=== PATIENT | female | born 1965 | race Caucasian/White ===

== ENCOUNTER 2017-01-08 09:15 | Emergency (ER) | payer BC ==
[2017-01-08] MEDS ORDERED: SYNTHROID0.125 MG PO (09:33)
[2017-01-08] MEDS ORDERED: ESTRACE 1MG1 MG/TAB PO (09:33)
[2017-01-08] MEDS ORDERED: DIAZEPAM10 MG PO (09:33)
[2017-01-08] MEDS ORDERED: OMEPRAZOLE D/R20 MG PO (10:38)
[2017-01-08 10:49] VITALS: BP 110/67
== END 2017-01-08 10:49 | disposition home or self-care (01) ==
LOC: ED 09:15
DX: K29.00 Acute gastritis without bleeding (principal)

== ENCOUNTER → 2017-01-08 | Outpatient (CLI) | payer BC ==
[~2017-01-08] VITALS: Wt 80.5 kg
[~2017-01-08] MED LIST: DIAZEPAM10 MG PO; ESTRACE 1MG1 MG/TAB PO; OMEPRAZOLE D/R20 MG PO; SYNTHROID0.125 MG PO
--- NOTE | 2017-01-08 13:35 | NUR ---
arrives from Dr. Wasserman office after continued c/o abdominal pain after dismissal from ED this am, she states the "GI Cocktail" worked very well for about an hour. also states she did fill the Prilosec and took one, arrives with pain 04/24 and it comes/goes in waves.
--- NOTE | 2017-01-08 13:45 | NUR ---
#20 gauge to right hand for IVF.
--- NOTE | 2017-01-08 13:55 | NUR ---
lab here, specs collected without difficulty
[2017-01-08 14:04] VITALS: BP 146/76
--- NOTE | 2017-01-08 14:28 | NUR ---
Pili from Dr. Wasserman office calls stating "no prior authorization is needed for patients C-T of abdomen/pelvis".
--- NOTE | 2017-01-08 14:45 | NUR ---
patient to C-T per w/c, 1 liter IVF infused.
--- NOTE | 2017-01-08 14:56 | NUR ---
returns to room
[2017-01-08 15:10] VITALS: BP 122/67
--- NOTE | 2017-01-08 15:10 | NUR ---
brittney left with Dr. Wasserman office regarding patients current status
--- NOTE | 2017-01-08 16:11 | NUR ---
patient leaves room stating she "has to smoke" continue to wait for response from Dr. Vaughan
--- NOTE | 2017-01-08 16:23 | NUR ---
patient contacts Dr. Wasserman office, she is told they have the lab results and Dr. Vaughan should call for C-T results, patient takes ice chips
[2017-01-08 16:35] VITALS: BP 125/61
--- NOTE | 2017-01-08 18:15 | NUR ---
patient out to Nurses station , states she is on the phone to Dr. Vaughan, he tells this Nurse he will dismiss the patient to home after he arrives here to give her some prescriptions.
--- NOTE | 2017-01-08 18:40 | NUR ---
Dr. Vaughan arrives, visits with patient, prescriptions given, she is dismissed ambulatory to care of spouse, in no obvious distress at this time.
== END ==
LOC: AMSURD 13:23
DX: R10.31 Right lower quadrant pain (principal); R10.13 Epigastric pain; K52.9 Noninfective gastroenteritis and colitis, unspecified; K57.30 Diverticulosis of large intestine without perforation or abscess without bleeding
CPT/HCPCS: J2270; J2405; J7030; Q9967

== ENCOUNTER → 2017-04-25 | Outpatient (CLI) | payer BC ==
[2017-01-08 16:35] VITALS: BP 125/61
== END ==
LOC: RAD 13:22
DX: R10.11 Right upper quadrant pain (principal); K22.5 Diverticulum of esophagus, acquired; K57.30 Diverticulosis of large intestine without perforation or abscess without bleeding
CPT/HCPCS: Q9967

== ENCOUNTER → 2017-07-24 | Outpatient (CLI) | payer BC ==
[2017-01-08 16:35] VITALS: BP 125/61
== END ==
LOC: RAD 09:13 → MAMMO 09:15 → RAD 09:15
DX: Z12.31 Encounter for screening mammogram for malignant neoplasm of breast (principal)